=== PATIENT | male | born 1995 | race Caucasian/White ===

== ENCOUNTER 2018-03-30 23:13 | Emergency (ER) | payer OTHER ==
[~2018-03-30] VITALS: Ht 185.4 cm; Wt 123.8 kg
[2018-03-30 23:20] VITALS: Ht 185.4 cm; Wt 123.8 kg
[2018-03-31 02:13] LABS: CALCIUM 8.8 mg/dL (8.5-10.1); CHLORIDE SERUM 102 mmol/L (98-107); CREATININE SERUM 0.9 mg/dL (0.7-1.3); GFR1 > 60 mL/min; GLUCOSE SERUM 98 mg/dL (74-106); POTASSIUM SERUM 3.6 mmol/L (3.5-5.1); SODIUM SERUM 137 mmol/L (136-145)
[2018-03-31 02:15] LABS: BASOPHIL % 1.9 % (0-2); RED CELL DISTRIBUTION WIDTH 12.6 % (11.5-14.5)
[2018-03-31 02:18] LABS: ALBUMIN 3.8 g/dL (3.4-5.0); ALKALINE PHOSPHATASE 121 U/L (46-116); ALT/SGPT 33 U/L (16-63); AST/SGOT 17 U/L (15-37); BILIRUBIN TOTAL 0.37 mg/dL (0.20-1.00)
[2018-03-31 02:19] LABS: TOTAL PROTEIN, SERUM 8.6 g/dL (6.4-8.2)
[2018-03-31 02:20] LABS: PLATELET COUNT 402 x10^3mcL (130-400)
[2018-03-31 04:10] VITALS: BP 139/56
== END 2018-03-31 04:10 | disposition home or self-care (01) ==
LOC: ED 23:13
PROVIDERS: Emergency Medicine
DX: G44.209 Tension-type headache, unspecified, not intractable (principal); R11.2 Nausea with vomiting, unspecified
CPT/HCPCS: J1885; J2270; J2765

== ENCOUNTER 2018-08-29 20:13 | Emergency (ER) | payer OTHER ==
[~2018-08-29] VITALS: Ht 182.9 cm; Wt 120.2 kg
[2018-08-29 20:19] VITALS: Ht 182.9 cm; Wt 120.2 kg
[2018-08-29 22:13] VITALS: BP 145/94
== END 2018-08-29 22:13 | disposition home or self-care (01) ==
LOC: ED 20:13
DX: S93.401A Sprain of unspecified ligament of right ankle, initial encounter (principal); X50.1XXA Overexertion from prolonged static or awkward postures, initial encounter; Y93.89 Activity, other specified; Y92.89 Other specified places as the place of occurrence of the external cause; Y99.8 Other external cause status